=== PATIENT | female | born 1960 | race American Indian/Alaskan Native ===

== ENCOUNTER 2016-03-30 11:54 | Emergency (ER) | payer OTHER ==
--- NOTE | 2016-03-30 14:54 | Emergency Department Report ---
Chief Complaint: Extremity Problem,Nontraumatic Stated Complaint: LT ARM AND SHOULDER PAIN Time Seen by Provider: 03/30/16 14:53 - HPI History of Present Illness: Patient here complaining of left shoulder pain without any injury. She said she is having pain in her left arm that's radiating to her left side of her neck and radiating down the left side of her back. She reports pain with movement. Denies any nausea or vomiting. Denies any chest pain or shortness of breath. Patient says she has no medical problems. She denies any heavy lifting. - ROS Review of Systems: all Systems are negative unless stated in HPI above. - Exam Vital Signs: Vital Signs 03/30/16 13:55 Temperature 98.4 F Pulse Rate 75 Respiratory 20 Rate Blood Pressure 158/94 O2 Sat by Pulse 100 Oximetry Physical Exam: General: This is a 55-year-old female well-nourished well-developed in no acute distress. Extremity: PT able to raise arm above head that she said it's painful in her left shoulder. Tender to palpate to left before meals area. No swelling or erythema noted. 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 Pulses are 2+. No neurovascular compromise. CV: S1, S2. Regular rate and rhythm MSE screening note: Focused history and physical exam performed. Due to findings the following was ordered: See MDM ED Medical Decision Making - Medical Decision Making Medical decision making: Patient seen by provider in triage area. Appropriate protocol activated and patient to main ED to be seen by physician. ED Disposition for MSE Condition: Stable
--- NOTE | 2016-03-30 15:44 | XRay Report ---
LEFT SHOULDER RADIOGRAPHS INDICATION: Left shoulder pain. COMPARISON: None similar. FINDINGS: Frontal and Y views of the left shoulder, 3 projections demonstrate normal humeral head contour, well positioned against the glenoid. Intact acromioclavicular joint. Preserved scapular contour. Normal visualized soft tissues, left ribs and lung. CONCLUSION: No acute left shoulder radiographic abnormality, as described. Thank you for the opportunity to participate in this patient's care.
[2016-03-30 18:26] LABS: Basophils % (Auto) 0.4 % (0.0-1.8); Eosinophils % (Auto) 0.9 % (0.0-4.3); Hematocrit 40.2 % (30.3-42.9); Hemoglobin 13.1 gm/dl (10.1-14.3); Mean Corpuscular HGB Conc 33 % (30-34); Mean Corpuscular Hemoglobin 28 pg (28-32); Mean Corpuscular Volume 85 fl (79-97); Platelet Count 248 K/mm3 (140-440); Red Blood Count 4.75 M/mm3 (3.65-5.03); Red Cell Distribution Width 14.6 % (13.2-15.2); White Blood Count 7.7 K/mm3 (4.5-11.0)
[2016-03-30 18:28] LABS: Creatine Kinase MB 2.9 ng/mL (0.0-4.0)
[2016-03-30 18:32] LABS: Alanine Aminotransferase 7 units/L (7-56); Albumin 4.3 g/dL (3.9-5); Albumin/Globulin Ratio 1.2 %; Alkaline Phosphatase 79 units/L (35-129); Anion Gap 18 mmol/L; BUN/Creatinine Ratio 14.28; Bilirubin,Total 0.4 mg/dL (0.1-1.2); Blood Urea Nitrogen 10 mg/dL (7-17); Calcium 9.4 mg/dL (8.4-10.2); Carbon Dioxide 24 mmol/L (22-30); Chloride 100.8 mmol/L (98-107); Creatine Kinase 101 units/L (30-135); Glucose 89 mg/dL (65-100); Potassium 3.9 mmol/L (3.6-5.0); Sodium 139 mmol/L (137-145); Total Protein 7.9 g/dL (6.3-8.2)
--- NOTE | 2016-03-30 22:50 | Emergency Department Report ---
HPI - General Chief Complaint: Extremity Problem,Nontraumatic Time Seen by Provider: 03/30/16 14:53 - HPI HPI: 55-year-old female, otherwise healthy, presents today with left shoulder pain radiating down her arm 2 days. Denies injury or trauma. Rate her pain as a 4 out of 10. Denies change in activity or heavy lifting. Denies numbness, weakness, paresthesias. Denies fever, chills, nausea, vomiting, chest pain, shortness of breath, abdominal pain. ED Past Medical Hx - Surgical History Hx Cholecystectomy: Yes Additional Surgical History: tubal ligation - Social History Smoking Status: Former Smoker Substance Use Type: None - Medications Home Medications: Home Medications Medication Instructions Recorded Confirmed Last Taken Type Cyclobenzaprine [Flexeril] 10 mg PO TID PRN #14 tablet 03/30/16 Unknown Rx Naproxen [Naprosyn] 500 mg PO BID #30 tablet 03/30/16 Unknown Rx ED Review of Systems ROS: Stated complaint: LT ARM AND SHOULDER PAIN Other details as noted in HPI Constitutional: denies: chills, fever, malaise Eyes: denies: eye pain ENT: denies: ear pain, throat pain, congestion Respiratory: denies: cough, shortness of breath, wheezing Cardiovascular: denies: chest pain, palpitations Endocrine: no symptoms reported Gastrointestinal: denies: abdominal pain, nausea, vomiting Musculoskeletal: arthralgia Neurological: denies: headache, weakness, numbness, paresthesias Physical Exam - Physical Exam Vital Signs: Vital Signs 03/30/16 13:55 Temperature 98.4 F Pulse Rate 75 Respiratory 20 Rate Blood Pressure 158/94 O2 Sat by Pulse 100 Oximetry Physical Exam: GENERAL: The patient is well-developed and well-nourished. Patient is in NAD. HEAD: Normocephalic. Atraumatic. NECK: No midline or paraspinal tenderness to palpation. Full range of motion. CHEST/LUNGS: Clear to auscultation throughout. HEART/CARDIOVASCULAR: Regular rate and rhythm. ABDOMEN: Abdomen is soft, nontender. No guarding or rebound tenderness. LEFT SHOULDER: Tenderness to palpation of shoulder joint. Full range of motion , but painful. Normal sensation. 2 point discrimination intact. Peripheral pulses intact. Capillary refill less than 2 seconds. NEURO: Alert and oriented x 3. Normal gait. ED Course Vital Signs 03/30/16 13:55 Temperature 98.4 F Pulse Rate 75 Respiratory 20 Rate Blood Pressure 158/94 O2 Sat by Pulse 100 Oximetry ED Medical Decision Making - Lab Data Result diagrams: 03/30/16 17:42 03/30/16 17:42 Vital Signs 03/30/16 13:55 Temperature 98.4 F Pulse Rate 75 Respiratory 20 Rate Blood Pressure 158/94 O2 Sat by Pulse 100 Oximetry Lab Results 03/30/16 03/30/16 Range/Units 17:42 17:42 WBC 7.7 (4.5-11.0) K/mm3 RBC 4.75 (3.65-5.03) M/mm3 Hgb 13.1 (10.1-14.3) gm/dl Hct 40.2 (30.3-42.9) % MCV 85 (79-97) fl MCH 28 (28-32) pg MCHC 33 (30-34) % RDW 14.6 (13.2-15.2) % Plt Count 248 (140-440) K/mm3 Lymph % (Auto) 46.1 H (13.4-35.0) % [place] % (Auto) 5.8 (0.0-7.3) % Eos % (Auto) 0.9 (0.0-4.3) % Baso % (Auto) 0.4 (0.0-1.8) % Lymph # 3.5 (1.2-5.4) K/mm3 [place] # 0.4 (0.0-0.8) K/mm3 Eos # 0.1 (0.0-0.4) K/mm3 Baso # 0.0 (0.0-0.1) K/mm3 Seg Neutrophils % 46.8 (40.0-70.0) % Seg Neutrophils # 3.6 (1.8-7.7) K/mm3 Sodium 139 (137-145) mmol/L Potassium 3.9 (3.6-5.0) mmol/L Chloride 100.8 (98-107) mmol/L Carbon Dioxide 24 (22-30) mmol/L Anion Gap 18 mmol/L BUN 10 (7-17) mg/dL Creatinine 0.7 (0.7-1.2) mg/dL Estimated GFR > 60 ml/min BUN/Creatinine Ratio 14.28 % Glucose 89 (65-100) mg/dL Calcium 9.4 (8.4-10.2) mg/dL Total Bilirubin 0.4 (0.1-1.2) mg/dL AST 16 (5-40) units/L ALT 7 (7-56) units/L Alkaline Phosphatase 79 (35-129) units/L Total Creatine Kinase 101 (30-135) units/L CK-MB (CK-2) 2.9 (0.0-4.0) ng/mL CK-MB (CK-2) Rel Index 2.8 (0-4) Troponin T < 0.010 (0.00-0.029) ng/mL Total Protein 7.9 (6.3-8.2) g/dL Albumin 4.3 (3.9-5) g/dL Albumin/Globulin Ratio 1.2 % - Radiology Data Radiology results: report reviewed Right shoulder: Frontal and 5 views of the left shoulder, 3 projections demonstrate normal humeral head contour, well positioned against the glenoid. Intact acromioclavicular joint. Preserved scapular contour. Normal visualize soft tissues, left ribs and lung. - Medical Decision Making 55-year-old female presents today with left shoulder pain 2 days. Her x-ray results reveal no fracture or dislocation. Patient will be provided with a referral for orthopedic to follow-up with if pain persists.Patient is in no acute distress at this time. She will be discharged home and is encouraged to follow up with a primary care provider. He will be sent home on Flexeril and Naprosyn and is encouraged to return to the emergency room for any worsening symptoms. Critical care attestation.: If time is entered above; I have spent that time in minutes in the direct care of this critically ill patient, excluding procedure time. ED Disposition Clinical Impression: Shoulder pain Qualifiers: Laterality: left Chronicity: acute Qualified Code(s): M25.512 - Pain in left shoulder Disposition: DISCHARGED TO HOME OR SELFCARE Is pt being admited?: No Does the pt Need Aspirin: No Condition: Stable Instructions: Shoulder Sprain (ED) Additional Instructions: Follow-up with primary care provider and orthopedic. Return to the emergency department if symptoms worsen. Prescriptions: Cyclobenzaprine [Flexeril] 10 mg PO TID PRN #14 tablet PRN Reason: Muscle Spasm Naproxen [Naprosyn] 500 mg PO BID #30 tablet Referrals: PRIMARY CARE, [Primary Care Provider] - 3-5 Days ANI VERONICA MD [Staff Physician] - 3-5 Days Forms: Work/School Release Form(ED) Time of Disposition: 22:53
[2016-03-30 22:57] VITALS: BP 120/85
== END 2016-03-30 23:15 | disposition home or self-care (01) ==
LOC: ED 11:54
DX: M25.512 Pain in left shoulder (principal); Z87.891 Personal history of nicotine dependence
CPT/HCPCS: 36415; 80053; 82550; 82553; 84484; 85025; 93005; 93010; 99284

== ENCOUNTER 2016-04-13 11:53 | Emergency (ER) | payer OTHER ==
[2016-04-13 12:40] LABS: Basophils % (Auto) 0.7 % (0.0-1.8); Eosinophils % (Auto) 2.4 % (0.0-4.3); Hematocrit 38.3 % (30.3-42.9); Hemoglobin 12.6 gm/dl (10.1-14.3); Mean Corpuscular HGB Conc 33 % (30-34); Mean Corpuscular Hemoglobin 28 pg (28-32); Mean Corpuscular Volume 84 fl (79-97); Platelet Count 210 K/mm3 (140-440); Red Blood Count 4.57 M/mm3 (3.65-5.03); Red Cell Distribution Width 14.8 % (13.2-15.2); White Blood Count 6.9 K/mm3 (4.5-11.0)
[2016-04-13 12:54] LABS: Alanine Aminotransferase 7 units/L (7-56); Albumin 4.3 g/dL (3.9-5); Albumin/Globulin Ratio 1.3 %; Alkaline Phosphatase 67 units/L (35-129); Anion Gap 19 mmol/L; BUN/Creatinine Ratio 17.14; Bilirubin,Total 0.4 mg/dL (0.1-1.2); Blood Urea Nitrogen 12 mg/dL (7-17); Calcium 9.2 mg/dL (8.4-10.2); Carbon Dioxide 23 mmol/L (22-30); Glucose 95 mg/dL (65-100); Lipase 31 units/L (13-60); Potassium 4.2 mmol/L (3.6-5.0); Sodium 143 mmol/L (137-145); Total Protein 7.6 g/dL (6.3-8.2)
[2016-04-13 13:34] LABS: Bilirubin,Urine NEG (Negative); Blood,Urine NEG (Negative); Ketones,Urine NEG (Negative); Leukocyte Esterase,Urine NEG (Negative); Nitrite,Urine NEG (Negative); Protein,Urine <15 mg/dL mg/dL (Negative); Urobilinogen,Urine < 2.0 mg/dL (<2.0)
[2016-04-13] MEDS ORDERED: MORPHINE IV ONE (14:09)
[2016-04-13] MEDS ORDERED: NACL ONE ×2 (14:11→15:09)
--- NOTE | 2016-04-13 14:48 | Emergency Department Report ---
HPI - General Chief Complaint: Abdominal Pain Time Seen by Provider: 04/13/16 13:51 - HPI HPI: This is a 55 year old Afro-[place] female presents to the emergency department by EMS with complaint of a one-week history of upper abdominal pain that worsened this morning. The patient says that she's been dealing with it intermittently over the past week but starting at 7 AM the pain has been consistent and intense and is currently 7 out of 10 in intensity. She has not taken anything for symptoms prior to presentation. She denies any fever, vomiting, diarrhea but does have some intermittent nausea. Food does not appear to affect her discomfort. No recent travel or sick contacts at home. She does not have any primary care doctor. The pain is sharp pain. She has a past surgical history of cholecystectomy and tubal ligation. She denies any past medical history. ED Past Medical Hx - Surgical History Hx Cholecystectomy: Yes Additional Surgical History: tubal ligation - Social History Smoking Status: Former Smoker Substance Use Type: None - Medications Home Medications: Home Medications Medication Instructions Recorded Confirmed Last Taken Type Cyclobenzaprine [Flexeril] 10 mg PO TID PRN #14 tablet 03/30/16 Unknown Rx Naproxen [Naprosyn] 500 mg PO BID #30 tablet 03/30/16 Unknown Rx HYDROcodone/APAP 5-325 [[place] 1 each PO Q6HR PRN #10 tablet 04/13/16 Unknown Rx 5/325] ED Review of Systems ROS: Stated complaint: NAUSEA/DIZZY Other details as noted in HPI Comment: All other systems reviewed and negative Constitutional: denies: chills, fever Eyes: denies: eye pain, eye discharge, vision change ENT: denies: ear pain, throat pain Respiratory: denies: cough, shortness of breath, wheezing Cardiovascular: denies: chest pain, palpitations Gastrointestinal: abdominal pain. denies: nausea, vomiting Genitourinary: denies: urgency, dysuria, discharge Musculoskeletal: denies: back pain, joint swelling, arthralgia Skin: denies: rash, lesions Neurological: denies: headache, weakness, paresthesias Physical Exam - Physical Exam Vital Signs: Vital Signs 04/13/16 12:00 Temperature 98.6 F Pulse Rate 85 Respiratory 18 Rate Blood Pressure 164/106 O2 Sat by Pulse 98 Oximetry Physical Exam: GENERAL: The patient is well-developed well-nourished area. HEENT: Normocephalic. Atraumatic. Extraocular motions are intact. Patient has moist mucous membranes. Pupils equal reactive to light bilaterally. NECK: Supple. Trachea is midline. CHEST/LUNGS: Clear to auscultation. There is no respiratory distress noted. HEART/CARDIOVASCULAR: Regular. There is no tachycardia. There is no gallop rub or murmur. ABDOMEN: Abdomen is soft. Patient has some tenderness to palpation of the epigastrium. No guarding rebound tenderness. No peritoneal signs. Patient has normal bowel sounds. There is no abdominal distention. SKIN: There is no rash. There is no diaphoresis. NEURO: The patient is awake, alert, and oriented. The patient is cooperative. The patient has no focal neurologic deficits. The patient has normal speech. MUSCULOSKELETAL: There is no tenderness or deformity. There is no limitation range of motion. There is no evidence of acute injury. ED Course Vital Signs 04/13/16 12:00 Temperature 98.6 F Pulse Rate 85 Respiratory 18 Rate Blood Pressure 164/106 O2 Sat by Pulse 98 Oximetry ED Medical Decision Making - Lab Data Result diagrams: 04/13/16 12:24 04/13/16 12:24 - Radiology Data Radiology results: report reviewed CT of the abdomen and pelvis with IV contrast shows some gas and stool throughout the colon but no obstruction, constipation or any other acute process. - Medical Decision Making 55-year-old female presents with a one-week history of some intermittent abdominal pain in the epigastrium that has worsened and become consistent since this morning. Patient's labs are unremarkable including no leukocytosis, electrolyte abnormalities, renal insufficiency, glucose abnormalities. She has normal belly labs. No urinary tract infection. A CT of the abdomen and pelvis was done that did not show any acute process. Patient was given a dose of pain medication and upon reevaluation is feeling much better. She'll be given referrals for primary care and gastroenterology. She will return to the ER with any worsening of her symptoms or any acute distress. - Differential Diagnosis gastritis, diverticulitis, colitis, obstruction Critical Care Time: No Critical care attestation.: If time is entered above; I have spent that time in minutes in the direct care of this critically ill patient, excluding procedure time. ED Disposition Clinical Impression: Abdominal pain Qualifiers: Abdominal location: epigastric Qualified Code(s): R10.13 - Epigastric pain Disposition: DISCHARGED TO HOME OR SELFCARE Is pt being admited?: No Does the pt Need Aspirin: No Condition: Stable Instructions: Abdominal Pain (ED) Additional Instructions: Please follow-up with a primary care doctor. I have also given you a referral for a local clinical cytogeneticist scientist, Dr. Kiser, to follow up regarding your abdominal pain. Return to the emergency department with any worsening of your symptoms or any acute distress. You've been prescribed a medication that is sedating. Therefore this medication cannot be mixed with alcohol, or taken prior to driving, working, or being responsible for children. Prescriptions: HYDROcodone/APAP 5-325 [[place] 5/325] 1 each PO Q6HR PRN #10 tablet PRN Reason: Pain Referrals: PRIMARY CAREMD [Primary Care Provider] - 3-5 Days JAMES DEAN MD [Staff Physician] - 3-5 Days PABLITO KISER MD [Staff Physician] - 3-5 Days Time of Disposition: 15:59
[2016-04-13 14:52] VITALS: BP 150/98
--- NOTE | 2016-04-13 15:45 | Cat Scan Report ---
CT scan of abdomen and pelvis with IV contrast: History: Abdominal pain. Findings: Normal lung bases. No pleural or pericardial effusion. Normal liver spleen pancreas. Patient status post cholecystectomy. Normal adrenals and kidney parenchyma and bladder. No free intraperitoneal fluid or air. No evidence of adenopathy. Normal aorta. Lobulated enlarged uterus with calcification. Gaseous colon with moderate stool in colon. No evidence of appendicitis or diverticulitis. No bowel distention. Impression: Gaseous colon with moderate volume stool in colon. Fibroid uterus.
== END 2016-04-13 16:50 | disposition home or self-care (01) ==
LOC: ED 11:53
DX: R10.13 Epigastric pain (principal); R11.0 Nausea; Z90.49 Acquired absence of other specified parts of digestive tract; Z87.891 Personal history of nicotine dependence
CPT/HCPCS: 36415; 74177; 80053; 81001; 83690; 85025; 96374; 99284; J2270; Q9967

== ENCOUNTER 2017-04-23 22:43 | Emergency (ER) | payer OTHER ==
[2017-04-23 23:05] VITALS: BP 135/86
[2017-04-23] MEDS ORDERED: ASPIRIN PO ONE (23:06)
[2017-04-23 23:47] LABS: Basophils % (Auto) 0.6 % (0.0-1.8); Eosinophils # (Auto) 0.1 K/mm3 (0.0-0.4); Hematocrit 41.4 % (30.3-42.9); Hemoglobin 13.8 gm/dl (10.1-14.3); Lymphocytes # (Auto) 3.1 K/mm3 (1.2-5.4); Mean Corpuscular HGB Conc 33 % (30-34); Mean Corpuscular Hemoglobin 29 pg (28-32); Mean Corpuscular Volume 87 fl (79-97); Monocytes # (Auto) 0.4 K/mm3 (0.0-0.8); Monocytes % (Auto) 5.4 % (0.0-7.3); Platelet Count 269 K/mm3 (140-440); Red Blood Count 4.77 M/mm3 (3.65-5.03); Red Cell Distribution Width 14.7 % (13.2-15.2)
[2017-04-23 23:54] LABS: BUN/Creatinine Ratio 15; Blood Urea Nitrogen 12 mg/dL (7-17); Calcium 10.9 mg/dL (8.4-10.2); Hemolysis Index 7
--- NOTE | 2017-04-24 00:28 | XRay Report ---
FINAL REPORT PROCEDURE: XR CHEST ROUTINE 2V TECHNIQUE: PA and lateral chest radiographs were obtained. CPT 23197 HISTORY: sob COMPARISON: No prior studies are available for comparison. FINDINGS: Heart: Normal. Mediastinum/Vessels: Normal. Lungs/Pleural space: Normal. Bony thorax: No acute osseous abnormality. Other: IMPRESSION: Normal examination.
[2017-04-24] MEDS ORDERED: ASPIRIN ONE (03:40)
[2017-04-24 04:03] LABS: Bilirubin,Urine NEG (Negative); Blood,Urine NEG (Negative); Color,Urine Yellow (Yellow); Mucus,Urine FEW /HPF; Nitrite,Urine NEG (Negative); Protein,Urine <15 mg/dL mg/dL (Negative); Urobilinogen,Urine < 2.0 mg/dL (<2.0)
== END 2017-04-24 10:15 | disposition left against medical advice (07) ==
LOC: ED 22:43
DX: R07.9 Chest pain, unspecified (principal); Z53.21 Procedure and treatment not carried out due to patient leaving prior to being seen by health care provider
CPT/HCPCS: 36415; 71046; 80048; 81001; 84484; 85025; 93005; 93010

== ENCOUNTER 2017-12-25 08:21 | Emergency (ER) | payer OTHER ==
[2017-12-25 08:36] VITALS: BP 170/97
[2017-12-25] MEDS ORDERED: DELTASONE PO ONE (09:41)
--- NOTE | 2017-12-25 09:47 | Emergency Department Report ---
ED Lower Extremity HPI - General Chief Complaint: Extremity Injury, Lower Stated Complaint: RIGHT HIP PAIN Time Seen by Provider: 12/25/17 08:46 Source: patient Mode of arrival: Ambulatory Limitations: No Limitations - History of Present Illness Initial Comments: She presents to the emergency department with a chief complaint of right leg pain after working out at the gym. Patient states that she increased the weight on the leg press yesterday as well as increased and, on the treadmill and nose this morning as she was having a significant amount of pain in her right leg. Patient states movement makes it worse and sitting still improves the pain. She describes the pain as sharp in nature. Patient has no other symptoms. Patient denies back, abdominal pain. -: Sudden (HEENT: The right) Injury: Leg: Right Type of Injury: unknown Place: other (gym to my) Severity scale (0 -10): 4 Improves With: rest Worsens With: movement Context: other (unknown) - Related Data Previous Rx's Medication Instructions Recorded Last Taken Type Ibuprofen [Motrin] 800 mg PO Q8HR PRN #30 tablet 12/25/17 Unknown Rx predniSONE [Deltasone] 20 mg PO QDAY #15 tab 12/25/17 Unknown Rx traMADol [Ultram] 50 mg PO Q6HR PRN #24 tablet 12/25/17 Unknown Rx Allergies Allergy/AdvReac Type Severity Reaction Status Date / Time No Known Allergies Allergy Verified 12/25/17 08:34 ED Review of Systems ROS: Stated complaint: RIGHT HIP PAIN Other details as noted in HPI Comment: All other systems reviewed and negative Constitutional: denies: chills, fever Eyes: denies: eye pain, eye discharge, vision change ENT: denies: ear pain, throat pain Respiratory: denies: cough, shortness of breath, wheezing Cardiovascular: denies: chest pain, palpitations Endocrine: no symptoms reported Gastrointestinal: denies: abdominal pain, nausea, diarrhea Genitourinary: denies: urgency, dysuria, discharge Musculoskeletal: other (right leg pain). denies: back pain, joint swelling, arthralgia Skin: denies: rash, lesions Neurological: denies: headache, weakness, paresthesias Psychiatric: denies: anxiety, depression Hematological/Lymphatic: denies: easy bleeding, easy bruising ED Past Medical Hx - Past Medical History Hx Hypertension: Yes Additional medical history: Cholecystectomy done in 1982,Tubal ligation in 1983 - Surgical History Hx Cholecystectomy: Yes Additional Surgical History: tubal ligation - Social History Smoking Status: Current Some Day Smoker Substance Use Type: None - Medications Home Medications: Home Medications Medication Instructions Recorded Confirmed Last Taken Type Ibuprofen [Motrin] 800 mg PO Q8HR PRN #30 tablet 12/25/17 Unknown Rx predniSONE [Deltasone] 20 mg PO QDAY #15 tab 12/25/17 Unknown Rx traMADol [Ultram] 50 mg PO Q6HR PRN #24 tablet 12/25/17 Unknown Rx ED Physical Exam - General Limitations: No Limitations General appearance: alert, in no apparent distress - Head Head exam: Present: atraumatic, normocephalic - Eye Eye exam: Present: normal appearance - ENT ENT exam: Present: mucous membranes moist - Neck Neck exam: Present: normal inspection - Respiratory Respiratory exam: Present: normal lung sounds bilaterally. Absent: respiratory distress - Cardiovascular Cardiovascular Exam: Present: regular rate, normal rhythm. Absent: systolic murmur, diastolic murmur, rubs, gallop - GI/Abdominal GI/Abdominal exam: Present: soft, normal bowel sounds - Extremities Exam Extremities exam: Present: full ROM, tenderness, other (patient is tender to palpation in the femoral triangle is lateral aspects on the right side) - Back Exam Back exam: Present: normal inspection - Neurological Exam Neurological exam: Present: alert, oriented X3 - Psychiatric Psychiatric exam: Present: normal affect, normal mood - Skin Skin exam: Present: warm, dry, intact, normal color. Absent: rash ED Course Vital Signs 12/25/17 08:34 Temperature 98.7 F Pulse Rate 92 H Respiratory 18 Rate Blood Pressure 170/97 O2 Sat by Pulse 100 Oximetry ED Lower Extremity MDM - Medical Decision Making Discussed with patient that her pain is likely secondary to overuse syndrome Critical care attestation.: If time is entered above; I have spent that time in minutes in the direct care of this critically ill patient, excluding procedure time. ED Disposition Clinical Impression: Leg pain, right, Overuse injury of lower leg, length of the right Disposition: DC-01 TO HOME OR SELFCARE Is pt being admited?: No Does the pt Need Aspirin: No Condition: Stable Instructions: Musculoskeletal Pain (ED) Additional Instructions: return if worse Prescriptions: Ibuprofen [Motrin] 800 mg PO Q8HR PRN #30 tablet PRN Reason: pain predniSONE [Deltasone] 20 mg PO QDAY #15 tab traMADol [Ultram] 50 mg PO Q6HR PRN #24 tablet PRN Reason: Pain Referrals: PRIMARY CARE, [Primary Care Provider] - 3-5 Days [facility] [Provider Group] - 3-5 Days Time of Disposition: 09:47
== END 2017-12-25 10:07 | disposition home or self-care (01) ==
LOC: ED 08:21
DX: T14.90XA Injury, unspecified, initial encounter (principal); I10 Essential (primary) hypertension; F17.200 Nicotine dependence, unspecified, uncomplicated; Z98.51 Tubal ligation status; Z90.49 Acquired absence of other specified parts of digestive tract; Y93.A1 Activity, exercise machines primarily for cardiorespiratory conditioning; Y99.8 Other external cause status; Y92.39 Other specified sports and athletic area as the place of occurrence of the external cause
CPT/HCPCS: 99282; J7512